=== PATIENT | female | born 1965 ===

== ENCOUNTER 2023-03-16 14:28 | Outpatient (AMB) | payer OTHER, MEDICAID, SELFPAY ==
[2023-03-16 14:50] VITALS: BMI 37.8
--- NOTE | 2023-03-16 14:50 | A.OFFVIS_ITS ---
Intake VS Expanded 03/16/23 14:50 03/26/23 21:05 Height 5 ft 4 in 5 ft 4 in Weight 220 lb 3.869 oz 220 lb BMI 37.8 37.8 Intake Visit Reasons: Obesity Allergies No Known Allergies Allergy (Unverified 02/20/20 15:50) HPI Nutrition Presentation Details Pt presents for MNT for obesity The Pt was referred by her primary care provider, Dr. Jose Manuel Smart from [facility] Pt works from 3 am to 2 :30 pm Meals consist 3 am coffee/cream/sugar 4 am yogurt with granola 8 am 100 calories crackers, or fruit 10:50 fruits 4 pm bananas/ chicken baked air fryer , water 5pm fruit/crackers juice/water physical activity: daily life act ETOH- -- smoking denies , LTB-Eomkovw-Zh.Jeor Equation Height 5 ft 4 in Weight 220 lb Resting Metabolic Rate 1571.47 Calculated Activity Level Sedentary Calories Needed to Maintain Weight 1885.76 Diagnosis Nutrition problem #1 excessive energy intake As related to (etiology) #1 lack of nutrit education and diagnosis As evidenced by (sign/symptom) #1 knowledge deficit of diet Most Recent Diabetes Results: No Data to Display [facility] Medical History (Updated 03/26/23 @ 21:14 by Calli Landa, RD, LDN) Diverticulosis Hiatal hernia Prediabetes Assessment & Plan Assessment & Plan (1) Obesity (BMI 30.0-34.9): Comment: 160 g carbs /day Code(s): E66.9 - Obesity, unspecified Plan: wt: 100 kg Est kcal needs as per MSJ: 1800 (40% carb, 30% protein/fat) Est fluid needs as per 25-30 ml/d: 8574-3501 Est prot per day as per 1 g/kg bw: 100 Recommend fiber intake : 8-10 g per day and gradually increase to 25-28 g per day for women and 35-38 g for men or as tolerated Recommend sodium intake per day : less than 2000 mg Educated patient on: ( R = reviewed V = verbalizes understanding N/R = needs review N/A = not applicable * Food sources of carbohydrate, adequate serving sizes and its role in various health conditions: R * Differences between complex carbohydrates a simple carbohydrates, role of fiber in diet: R * Differences between types of fats and role in diet (mono on saturated fat fatty acids, saturated fatty acids, trans fats): R * Food sources of sodium in salt and healthy modifications for heart health in kidney health: R * Vitamins and minerals: R * Healthy plate method concept: R * Physical activity: Benefits a precaution: R * (2) Prediabetes: Code(s): R73.03 - Prediabetes Patient Instructions: Work on reducing your total carbohydrates to less than 60 g at meal time (lunch/dinner) Have a meal replacement at breakfast see 1800 pamela mal plan Coding Level of Care Code Nutr Indiv Intake (78336) Diagnoses Obesity (BMI 30.0-34.9) E66.9 Prediabetes R73.03 Time Spent (min) 30
[2023-03-26 21:05] VITALS: BMI 37.8
== END 2023-03-16 15:22 | disposition home or self-care (01) ==
PROVIDERS: PCP Internal Medicine; Visit Provider Dietitian, Registered
DX: E66.9 Obesity, unspecified (principal); R73.03 Prediabetes

== ENCOUNTER → 2023-03-16 14:28 | Outpatient (BNVA) | payer OTHER, MEDICAID, SELFPAY | PROVIDERS: PCP Internal Medicine; Visit Provider Dietitian, Registered | DX: E66.9 Obesity, unspecified (principal); Z68.37 Body mass index [BMI] 37.0-37.9, adult; R73.03 Prediabetes; Z71.3 Dietary counseling and surveillance | CPT/HCPCS: 97802 ==

== ENCOUNTER 2023-05-10 14:34 | Outpatient (AMB) | payer OTHER, MEDICAID, SELFPAY ==
[2023-05-10 14:40] VITALS: BMI 37.0
--- NOTE | 2023-05-10 14:40 | A.OFFVIS_ITS ---
Intake VS Expanded 05/10/23 14:40 Height 5 ft 4 in Weight 215 lb 6.266 oz BMI 37.0 Intake Visit Reasons: pre DM, obesity Allergies No Known Allergies Allergy (Unverified 02/20/20 15:50) HPI Nutrition Presentation Details Pt presents for MNT follow up for obesity Pt reports working on reducing the amount of carbs, working on following diet modification Most Recent Diabetes Results: No Data to Display [facility] Medical History (Updated 05/17/23 @ 19:[address], LDN) Diverticulosis Hiatal hernia Prediabetes Assessment & Plan Assessment & Plan (1) Obesity (BMI 30.0-34.9): Comment: Code(s): E66.9 - Obesity, unspecified Plan: wt: 100 kg (98 kg on 05/2023) Est kcal needs as per MSJ: 1800 (40% carb, 30% protein/fat) Est fluid needs as per 25-30 ml/d: 0983-4076 Est prot per day as per 1 g/kg bw: 100 Recommend fiber intake : 8-10 g per day and gradually increase to 25-28 g per day for women and 35-38 g for men or as tolerated Recommend sodium intake per day : less than 2000 mg Educated patient on: ( R = reviewed V = verbalizes understanding N/R = needs review N/A = not applicable * Food sources of carbohydrate, adequate serving sizes and its role in various health conditions: R * Differences between complex carbohydrates a simple carbohydrates, role of fiber in diet: R * Differences between types of fats and role in diet (mono on saturated fat fatty acids, saturated fatty acids, trans fats): R * Food sources of sodium in salt and healthy modifications for heart health in kidney health: R, V * Vitamins and minerals: R * Healthy plate method concept: R * Physical activity: Benefits a precaution: R * (2) Prediabetes: Code(s): R73.03 - Prediabetes Plan: wt: 100 kg (98 kg on 05/2023) Est kcal needs as per MSJ: 1800 (40% carb, 30% protein/fat) Est fluid needs as per 25-30 ml/d: 4340-4310 Est prot per day as per 1 g/kg bw: 100 Recommend fiber intake : 8-10 g per day and gradually increase to 25-28 g per day for women and 35-38 g for men or as tolerated Recommend sodium intake per day : less than 2000 mg Educated patient on: ( R = reviewed V = verbalizes understanding N/R = needs review N/A = not applicable * Food sources of carbohydrate, adequate serving sizes and its role in various health conditions: R * Differences between complex carbohydrates a simple carbohydrates, role of fiber in diet: R * Differences between types of fats and role in diet (mono on saturated fat fatty acids, saturated fatty acids, trans fats): R * Food sources of sodium in salt and healthy modifications for heart health in kidney health: R, V * Vitamins and minerals: R * Healthy plate method concept: R * Physical activity: Benefits a precaution: R Patient Instructions: Continue following meal plan , reducing carbs to 60 g at meal following healthy plate method Choose high fiber foods and keep hydrated Coding Level of Care Code Nutr Indiv Subseq (00737) Diagnoses Obesity (BMI 30.0-34.9) E66.9 Prediabetes R73.03 Time Spent (min) 20
== END 2023-05-10 15:20 | disposition home or self-care (01) ==
PROVIDERS: PCP Internal Medicine; Visit Provider Dietitian, Registered
DX: E66.9 Obesity, unspecified (principal); R73.03 Prediabetes

== ENCOUNTER → 2023-05-10 14:34 | Outpatient (BNVA) | payer OTHER, MEDICAID, SELFPAY | PROVIDERS: PCP Internal Medicine; Visit Provider Dietitian, Registered | DX: E66.9 Obesity, unspecified (principal); Z68.37 Body mass index [BMI] 37.0-37.9, adult; R73.03 Prediabetes; Z71.3 Dietary counseling and surveillance | CPT/HCPCS: 97803 ==

== ENCOUNTER 2023-06-27 14:08 | Outpatient (AMB) | payer OTHER, MEDICAID, SELFPAY ==
[2023-06-27 14:31] VITALS: BMI 36.1
--- NOTE | 2023-06-27 14:31 | A.OFFVIS_ITS ---
Intake VS Expanded 06/27/23 14:31 06/29/23 14:11 Height 5 ft 4 in 5 ft 4 in Weight 210 lb 8.663 oz 210 lb BMI 36.1 36.0 Intake Visit Reasons: obesity Allergies No Known Allergies Allergy (Unverified 02/20/20 15:50) HPI Nutrition Presentation Details Pt presents for MNT for Obesity. Pt reports doing well, working on diet modifications,r educing on sugars and portion sizes. Reports feeling comfortable. Physical activity: not yet, contemplating gym/equipment/walking at the mall Reports taking MVI Fluids: 64 + /day (water, low sugar flavored water) Fish : 1-2/wk Fruits : 2-3/d salads/ve x/wk UAF-Wdxijxm-Hw.Jeor Equation Height 5 ft 4 in Weight 210 lb Resting Metabolic Rate 1521.23 Calculated Activity Level Sedentary Calories Needed to Maintain Weight 1825.48 Most Recent Diabetes Results: No Data to Display [facility] Medical History (Updated 05/17/23 @ 19:[address], LDN) Diverticulosis Hiatal hernia Prediabetes Assessment & Plan Assessment & Plan (1) Obesity (BMI 30.0-34.9): Comment: Code(s): E66.9 - Obesity, unspecified Plan: wt: 100 kg (98 kg on 05/2023) , 95 kg (06/2023) Est kcal needs as per MSJ: 1800 (40% carb, 30% protein/fat) Est fluid needs as per 25-30 ml/d: 1966-9853 Est prot per day as per 1 g/kg bw: 95 Recommend fiber intake : 8-10 g per day and gradually increase to 25-28 g per day for women and 35-38 g for men or as tolerated Recommend sodium intake per day : less than 2000 mg Educated patient on: ( R = reviewed V = verbalizes understanding N/R = needs review N/A = not applicable * Food sources of carbohydrate, adequate serving sizes and its role in various health conditions: R, V * Differences between complex carbohydrates a simple carbohydrates, role of fiber in diet: R, V * Differences between types of fats and role in diet (mono on saturated fat fatty acids, saturated fatty acids, trans fats): R * Food sources of sodium in salt and healthy modifications for heart health in kidney health: R, V * Vitamins and minerals: R,V * Healthy plate method concept: R , V * Physical activity: Benefits a precaution: R , V * (2) Prediabetes: Code(s): R73.03 - Prediabetes Plan: wt: 100 kg (98 kg on 05/2023) , 95 kg (06/2023) Est kcal needs as per MSJ: 1800 (40% carb, 30% protein/fat) Est fluid needs as per 25-30 ml/d: 9638-7591 Est prot per day as per 1 g/kg bw: 95 Recommend fiber intake : 8-10 g per day and gradually increase to 25-28 g per day for women and 35-38 g for men or as tolerated Recommend sodium intake per day : less than 2000 mg Educated patient on: ( R = reviewed V = verbalizes understanding N/R = needs review N/A = not applicable * Food sources of carbohydrate, adequate serving sizes and its role in various health conditions: R, V * Differences between complex carbohydrates a simple carbohydrates, role of fiber in diet: R, V * Differences between types of fats and role in diet (mono on saturated fat fa tty acids, saturated fatty acids, trans fats): R * Food sources of sodium in salt and healthy modifications for heart health in kidney health: R, V * Vitamins and minerals: R,V * Healthy plate method concept: R , V * Physical activity: Benefits a precaution: R , V * Patient Instructions: Continue working on following healthy plate Engage in physical activity , start with 10 minute walk daily and gradually in crease by 10 minutes until able to reach at least 30 minutes daily or as tolerated Coding Level of Care Code Nutr Indiv Subseq (88607) Diagnoses Obesity (BMI 30.0-34.9) E66.9 Prediabetes R73.03 Time Spent (min) 30
[2023-06-29 14:11] VITALS: BMI 36.0
== END 2023-06-27 15:13 | disposition home or self-care (01) ==
PROVIDERS: PCP Internal Medicine; Visit Provider Dietitian, Registered
DX: E66.9 Obesity, unspecified (principal); R73.03 Prediabetes

== ENCOUNTER → 2023-06-27 14:08 | Outpatient (BNVA) | payer OTHER, MEDICAID, SELFPAY | PROVIDERS: PCP Internal Medicine; Visit Provider Dietitian, Registered | DX: E66.9 Obesity, unspecified (principal); Z68.36 Body mass index [BMI] 36.0-36.9, adult; R73.03 Prediabetes; Z71.3 Dietary counseling and surveillance | CPT/HCPCS: 97803 ==

== ENCOUNTER 2023-08-16 10:07 | Outpatient (AMB) | payer OTHER, MEDICAID, SELFPAY ==
[2023-08-16 10:17] VITALS: BMI 35.0
--- NOTE | 2023-08-16 10:17 | A.OFFVIS_ITS ---
Intake VS Expanded 08/16/23 10:17 Height 5 ft 4 in Weight 203 lb 11.314 oz BMI 35.0 Intake Visit Reasons: obesity/LVM Allergies No Known Allergies Allergy (Unverified 02/20/20 15:50) HPI Nutrition Presentation Details Pt presents for MNT for obesity, pre dm Pt reports keeping motivated, her son is very supportive in diet modifications and exercise routine working on including new vegetables and trying new foods /food mixtures food frequency fruits per day : 0-3 /wk vegetables : including 2-3 serving 4 x/wk starches: choosing root veg as main starches 10-11 serving/d dairy 2-3 serving/d fish : 1x/wk water : 64 oz /day, sometimes more physical activity: 3 x/wk, 10-20 minutes take a daily mvi Most Recent Diabetes Results: No Data to Display [facility] Medical History (Updated 05/17/23 @ 19:14 by Calli Landa, RD, LDN) Diverticulosis Hiatal hernia Prediabetes Assessment & Plan Assessment & Plan (1) Obesity (BMI 30.0-34.9): Comment: Code(s): E66.9 - Obesity, unspecified Plan: wt: 100 kg (98 kg on 05/2023) , 95 kg (06/2023), 93 kg ( 08/2023) Est kcal needs as per MSJ: 1800 (40% carb, 30% protein/fat) Est fluid needs as per 25-30 ml/d: 2914-2497 Est prot per day as per 1 g/kg bw: 95 Recommend fiber intake : 8-10 g per day and gradually increase to 25-28 g per day for women and 35-38 g for men or as tolerated Recommend sodium intake per day : less than 2000 mg Educated patient on: ( R = reviewed V = verbalizes understanding N/R = needs review N/A = not applicable * Food sources of carbohydrate, adequate serving sizes and its role in various health conditions: R, V * Differences between complex carbohydrates a simple carbohydrates, role of fiber in diet: R, V * Differences between types of fats and role in diet (mono on saturated fat fatty acids, saturated fatty acids, trans fats): R ,v * Food sources of sodium in salt and healthy modifications for heart health in kidney health: R, V * Vitamins and minerals: R,V * Healthy plate method concept: R , V * Physical activity: Benefits a precaution: R , V * (2) Prediabetes: Code(s): R73.03 - Prediabetes Plan: wt: 100 kg (98 kg on 05/2023) , 95 kg (06/2023), 93 kg ( 08/2023) Est kcal needs as per MSJ: 1800 (40% carb, 30% protein/fat) Est fluid needs as per 25-30 ml/d: 4822-7835 Est prot per day as per 1 g/kg bw: 95 Recommend fiber intake : 8-10 g per day and gradually increase to 25-28 g per day for women and 35-38 g for men or as tolerated Recommend sodium intake per day : less than 2000 mg Educated patient on: ( R = reviewed V = verbalizes understanding N/R = needs review N/A = not applicable * Food sources of carbohydrate, adequate serving sizes and its role in various health conditions: R, V * Differences between complex carbohydrates a simple carbohydrates, role of fiber in diet: R, V * Differences between types of fats and role in diet (mono on saturated fat fatty acids, saturated fatty acids, trans fats): R ,v * Food sources of sodium in salt and healthy modifications for heart health in kidney health: R, V * Vitamins and minerals: R,V * Healthy plate method concept: R , V * Physical activity: Benefits a precaution: R , V * Patient Instructions: Continue following healthy plate method Aim at 70-90 g of protein per day engage in physical activity 30 min at least 3 times a week and gradually increase to daily as tolerated monitor weight, goal 5-8 lbs less by next follow up Coding Level of Care Code Nutr Indiv Subseq (80073) Diagnoses Obesity (BMI 30.0-34.9) E66.9 Prediabetes R73.03 Time Spent (min) 30
== END 2023-08-16 10:42 | disposition home or self-care (01) ==
PROVIDERS: PCP Internal Medicine; Visit Provider Dietitian, Registered
DX: E66.9 Obesity, unspecified (principal); R73.03 Prediabetes

== ENCOUNTER → 2023-08-16 10:07 | Outpatient (BNVA) | payer OTHER, SELFPAY | PROVIDERS: PCP Internal Medicine; Visit Provider Dietitian, Registered | DX: E66.9 Obesity, unspecified (principal); Z68.35 Body mass index [BMI] 35.0-35.9, adult; R73.03 Prediabetes; Z71.3 Dietary counseling and surveillance | CPT/HCPCS: 97803 ==

== ENCOUNTER 2023-10-16 10:31 | Outpatient (AMB) | payer OTHER, MEDICAID, SELFPAY ==
[2023-10-16 10:35] VITALS: BMI 33.1
--- NOTE | 2023-10-16 10:35 | A.OFFVIS_ITS ---
VS Expanded 10/16/23 10:35 Height 5 ft 4 in Weight 193 lb 1.999 oz BMI 33.1 Intake Visit Reasons: pre dm, obesity Allergies No Known Allergies Allergy (Unverified 02/20/20 15:50) Nutrition Presentation Details: Pt presents for MNT f/u for pre diabetes and obesity. Pt reports continuing to work on diet modifications, no longer having soda/juice drinks and reducing food portions (fried foods/breads/starches) has coffee once a day not including milk/yogurt , may have cheese 1-2 x/d , has cream in coffee greens: 3 x/wk - reports slowly including vegetables in diet and contemplating making smoothies with fruit/veg fish: started including tilapia /salmon 1x/wk fruits: having 1-2 x/wk Physical activity: 3 times/wk 30 min, walking BS Monitoring Most Recent Diabetes Results: No Data to Display [facility] Medical History (Updated 05/17/23 @ 19:14 by Calli Landa, RD, LDN) Diverticulosis Hiatal hernia Prediabetes Assessment & Plan Assessment & Plan (1) Obesity (BMI 30.0-34.9): Comment: Code(s): E66.9 - Obesity, unspecified Category: Medical Plan: wt: 100 kg (98 kg on 05/2023) , 95 kg (06/2023), 93 kg ( 08/2023), 88kg (10/2023) Est kcal needs as per MSJ: 1800 (40% carb, 30% protein/fat) Est fluid needs as per 25-30 ml/d: 0148-1043 Est prot per day as per 1 g/kg bw: 88 Recommend fiber intake : 8-10 g per day and gradually increase to 25-28 g per day for women and 35-38 g for men or as tolerated Recommend sodium intake per day : less than 2000 mg Educated patient on: ( R = reviewed V = verbalizes understanding N/R = needs review N/A = not applicable * Food sources of carbohydrate, adequate serving sizes and its role in various health conditions: R, V * Differences between complex carbohydrates a simple carbohydrates, role of fiber in diet: R, V * Differences between types of fats and role in diet (mono on saturated fat fatty acids, saturated fatty acids, trans fats): R ,v * Food sources of sodium in salt and healthy modifications for heart health in kidney health: R, V * Vitamins and minerals: R,V * Healthy plate method concept: R , V * Physical activity: Benefits a precaution: R , V * calcium sources of foods, goal 1200 mg/day * (2) Prediabetes: Code(s): R73.03 - Prediabetes Category: Medical Plan: wt: 100 kg (98 kg on 05/2023) , 95 kg (06/2023), 93 kg ( 08/2023), 88 kg (10/2023) Est kcal needs as per MSJ: 1800 (40% carb, 30% protein/fat) Est fluid needs as per 30 ml/d: 2600 Est prot per day as per 1 g/kg bw: 88 Recommend fiber intake : 8-10 g per day and gradually increase to 25-28 g per day for women and 35-38 g for men or as tolerated Recommend sodium intake per day : less than 2000 mg Educated patient on: ( R = reviewed V = verbalizes understanding N/R = needs review N/A = not applicable * Food sources of carbohydrate, adequate serving sizes and its role in various health conditions: R, V * Differences between complex carbohydrates a simple carbohydrates, role of fiber in diet: R, V * Differences between types of fats and role in diet (mono on saturated fat fatty acids, saturated fatty acids, trans fats): R ,v * Food sources of sodium in salt and healthy modifications for heart health in kidney health: R, V * Vitamins and minerals: R,V * Healthy plate method concept: R , V * Physical activity: Benefits a precaution: R , V * calcium sources of foods * Patient Instructions: * Include calcium in your diet goal : 1200 mg/d (include leafy green, seeds, salmon, tofu) * continue working on following healthy plate method, try one new vegetables per week * include at least 2 fruits a day Coding Level of Care Code Nutr Indiv Subseq (18358) Diagnoses Obesity (BMI 30.0-34.9) E66.9 Prediabetes R73.03 Time Spent (min) 30
== END 2023-10-16 11:28 | disposition home or self-care (01) ==
PROVIDERS: PCP Internal Medicine; Visit Provider Dietitian, Registered
DX: E66.9 Obesity, unspecified (principal); R73.03 Prediabetes

== ENCOUNTER → 2023-10-16 10:31 | Outpatient (BNVA) | payer OTHER, SELFPAY | PROVIDERS: PCP Internal Medicine; Visit Provider Dietitian, Registered | DX: R73.03 Prediabetes (principal); E66.9 Obesity, unspecified; Z68.33 Body mass index [BMI] 33.0-33.9, adult; Z71.3 Dietary counseling and surveillance | CPT/HCPCS: 97803 ==

== ENCOUNTER 2024-01-22 10:34 | Outpatient (AMB) | payer OTHER, MEDICAID, SELFPAY ==
[2024-01-22 10:37] VITALS: BMI 35.6
--- NOTE | 2024-01-22 10:37 | A.OFFVIS_ITS ---
VS Expanded 01/22/24 10:37 Height 5 ft 4 in Weight 207 lb 3.752 oz BMI 35.6 Intake Visit Reasons: Pre DM/LVM Allergies No Known Allergies Allergy (Unverified 02/20/20 15:50) Nutrition Presentation Details: Pt presents for MNT f/u for obesity Pt reports having stopped meal planning this past month due to visiting fam members. BS Monitoring Most Recent Diabetes Results: No Data to Display [facility] Medical History (Updated 05/17/23 @ 19:[address], LDN) Diverticulosis Hiatal hernia Prediabetes Assessment & Plan Assessment & Plan (1) Obesity (BMI 30.0-34.9): Comment: Code(s): E66.9 - Obesity, unspecified Category: Medical Plan: wt: 100 kg (98 kg on 05/2023) , 95 kg (06/2023), 93 kg ( 08/2023), 88kg (10/2023), 94 kg (01/26) Est kcal needs as per MSJ: 1800 (40% carb, 30% protein/fat) Est fluid needs as per 25-30 ml/d: 7294-0116 Est prot per day as per 1 g/kg bw: 88 Recommend fiber intake : 8-10 g per day and gradually increase to 25-28 g per day for women and 35-38 g for men or as tolerated Recommend sodium intake per day : less than 2000 mg Educated patient on: ( R = reviewed V = verbalizes understanding N/R = needs review N/A = not applicable * Food sources of carbohydrate, adequate serving sizes and its role in various health conditions: R, V * Differences between complex carbohydrates a simple carbohydrates, role of fiber in diet: R, V * Differences between types of fats and role in diet (mono on saturated fat fatty acids, saturated fatty acids, trans fats): R ,v * Food sources of sodium in salt and healthy modifications for heart health in kidney health: R, V * Vitamins and minerals: R,V * Healthy plate method concept: R , V * Physical activity: Benefits a precaution: R , V * calcium sources of foods, goal 1200 mg/day * (2) Prediabetes: Code(s): R73.03 - Prediabetes Category: Medical Plan: wt: 100 kg (98 kg on 05/2023) , 95 kg (06/2023), 93 kg ( 08/2023), 88 kg (10/2023), 94 kg (01/2024) Est kcal needs as per MSJ: 1800 (40% carb, 30% protein/fat) Est fluid needs as per 30 ml/d: 2600 Est prot per day as per 1 g/kg bw: 88 Recommend fiber intake : 8-10 g per day and gradually increase to 25-28 g per day for women and 35-38 g for men or as tolerated Recommend sodium intake per day : less than 2000 mg Educated patient on: ( R = reviewed V = verbalizes understanding N/R = needs review N/A = not applicable * Food sources of carbohydrate, adequate serving sizes and its role in various health conditions: R, V * Differences between complex carbohydrates a simple carbohydrates, role of fiber in diet: R, V * Differences between types of fats and role in diet (mono on saturated fat fatty acids, saturated fatty acids, trans fats): R ,v * Food sources of sodium in salt and healthy modifications for heart health in kidney health: R, V * Vitamins and minerals: R,V * Healthy plate method concept: R , V * Physical activity: Benefits a precaution: R , V * calcium sources of foods * Patient Instructions: Resume working on having 3 meals/day following healthy plate method REstar physical activity, start with 10 minutes and gradually increase as tolerated Coding Level of Care Code Nutr Indiv Subseq (75071) Diagnoses Obesity (BMI 30.0-34.9) E66.9 Prediabetes R73.03 Time Spent (min) 20
== END 2024-01-22 11:05 | disposition home or self-care (01) ==
PROVIDERS: PCP Internal Medicine; Visit Provider Dietitian, Registered
DX: E66.9 Obesity, unspecified (principal); R73.03 Prediabetes

== ENCOUNTER → 2024-01-22 10:34 | Outpatient (BNVA) | payer OTHER, MEDICAID, SELFPAY | PROVIDERS: PCP Internal Medicine; Visit Provider Dietitian, Registered | DX: E66.9 Obesity, unspecified (principal); Z68.35 Body mass index [BMI] 35.0-35.9, adult; R73.03 Prediabetes; Z71.3 Dietary counseling and surveillance | CPT/HCPCS: 97803 ==

== ENCOUNTER 2025-02-25 18:26 | Emergency (ER) | payer OTHER, SELFPAY ==
--- OUTSIDE RECORDS SUMMARY | 2025-02-20 12:00 | XMS_ITS | Encounter Summary ---
Author Organization [facility] Address [address] [place] [address] Care Team Providers Care Rheologist Name Role Phone Kristy Schaffer MD Primary Care Provider [phone] Reason for Visit * Consultation (Routine) - Authorized Specialty Diagnoses / Procedures Referred By Annabella dudley Referred To Contact Physical Therapy Diagnoses Primary osteoarthritis of both knees Jeb Ang PA [address] [place] [phone] Phone: tel: fax: Referral ID Status Reason Start Date Expiration Date Visits Requested Visits Authorized [id number] Authorized Consult and Treat 12/19/2024 12/19/2025 21 21 Encounter Details Date Type Department Care Team (Latest Contact Info) Description 02/20/2025 12:00 PM EDT Treatment [address] [phone] Jamal Mendez, PT Primary osteoarthritis of both knees (Primary Dx); Difficulty in walking Social History Tobacco Use Types Packs/Day Years Used Date Smoking Tobacco: Never Smokeless Tobacco: Never Alcohol Use Standard Drinks/Week Comments No 0 (1 standard drink = 0.6 oz pur e alcohol) Interpersonal Safety Answer Date Record ed Physical Abuse 08/28/2024 Verbal Abuse 08/28/2024 Comments No Sex and Gender Information Value Date Recorded Sex Assigned at Female 08/28/2024 10:08 AM EDT Legal Sex Female 1:00 AM EST Gender Identity Female 08/28/2024 10:08 AM EDT Sexual Orientation Straight 08/28/2024 10 :08 AM EDT documented as of this encounter Progress Notes * Jamal Mendez, PT - 02/20/2025 12:00 PM EDT [facility] - Outpatient PHYSICAL THERAPY DAILY TREATMENT NOTE - OP Date: 02/20/2025 Visit Number: 3 Patient Name: Iker Sheppard : 1965 Age: 59 y.o. Gender: female Diagnosis: ICD-10-CM ICD-9-CM 1. Primary osteoarthritis of both knees M17.0 715.16 2. Difficulty in walking R26.2 719.7 Date of Onset/Surgery: 02/12/2025 Referring Provider: Jeb Ang PA Insurance: Payor: [employer] / Plan: [employer]ICA[employer] / Product Type: *No Product type* / Patient Identified by: Jamal Mendez PT Language: Speaks and understands Kazakh as preferred language with no attending urologist required Medications: Current Outpatient Medications on File Prior to Visit Medication Sig Dispense Refill eletriptan (RELPAX) 20 mg tablet Take 1 tablet (20 mg total) by mouth 1 (one) time if needed for migraine. May repeat once after 2 hours. 18 tablet 3 hydrOXYzine HCL (ATARAX) 25 mg tablet Take 1 tablet (25 mg total) by mouth every 8 (eight) hours ifneeded for anxiety. 90 each 0 levothyroxine (SYNTHROID, LEVOTHROID) 100 mcg tablet Take 1 tablet (100 mcg total) by mouth 1 (one)time each day. 90 tablet 1 losartan (Cozaar) 25 mg tablet Take 1 tablet (25 mg total) by mouth 1 (one) time each day. 90 each 0 meloxicam (MOBIC) 7.5 mg tablet Take 1 tablet (7.5 mg total) by mouth 1 (one) time each day. 30 tablet 2 metoprolol succinate (Toprol XL) 25 mg 24 hr tablet Take 1 tablet (25 mg total) by mouth 1 (one) time each day. Do not crush or chew. 90 each 0 naproxen (NAPROSYN) 500 mg tablet Take 1 tablet (500 mg total) by mouth 2 (two) times a day if needed for mild pain, moderate pain or headaches. 60 tablet 2 omeprazole (PriLOSEC) [address] capsule Take 1 capsule (40 mg total) by mouth 1 (one) time each day.90 each 0 ramelteon (Rozerem) 8 mg tablet Take 1 tablet (8 mg total) by mouth at bedtime as needed for sleep.90 each 0 UNABLE TO FIND Med Name: CPAP machine No current facility-administered medications on file prior to visit. Allergies: has No Known Allergies. Precautions: None Fall risk: No SUBJECTIVE: Subjective Report: A little bit better after last visit. Chart Reviewed: Yes Pain: A little B knees 4/10 OBJECTIVE: Vitals: There were no vitals filed for this visit.; TREATMENT INTERVENTION: Manual Tech: STM B knees Pat mobilizations B knee Therex: Heel slides 2 x 10 SLR 2 x 10 Hip abd in H/L blue tband 2 x 10 Shuttle 4 cords presses 2 x 10 HS curls in standing 2 x 10 Nu step x 5 min L5 True stretch hip flexor/knee flexion stretch x 10 each. ASSESSMENT/Response to Treatment Good. Pt did have some fatigue and pain with increased exercises today. L pat mobility and swellingat pop space much worse that R. Patient Education: Education provided: Exs Education Provided To: Patient utilizing Explanation and Demonstration mode(s) of education Response to Education: Applied Knowledge, Verbal Understanding, and Demonstrated Skills PLAN POC Development/Review: No Change in the Plan of Care; Participants: Patient Interventions Time Entry: Modalities: Therapeutic procedures: Manual Therapy Time Entry: 9 Therapeutic Exercise Time Entry: 21 Total Treatment Time: 30 Documentation completed by Jamal Mendez PT documented in this encounter Plan of Treatment Upcoming Encounters Date Type Department Care Team (Late st Contact Info) Description 02/26/2025 9:10 AM EDT Office Visit [facility] [address] [place] [address] Hayde Andrew NP [address] [place] [address] [address] [place] [phone] 02/27/2025 11:00 AM EDT Treatment [facility] - [address] [place] [address] Jamal Mendez, PT 03/03/2025 10:00 AM EDT Treatment [address] [phone] Kareem Mendoza, CNA GNA 03/05/2025 10:00 AM EDT Treatment [address] [phone] Kareem Mendoza, CNA GNA 03/10/2025 11:00 AM EDT Treatment [address] [phone] Jamal Mendez, PT 03/12/2025 10:00 AM EDT Treatment [address] [phone] Jamal Mendez, PT 03/13/2025 10:00 AM EDT Office Visit Pulmonology [address] [phone] Samantha Bailey MD [address] [address] 03/20/2025 10:45 AM EDT Office Visit Orthopedics [address] [phone] Jeb Ang PA [address] [place] [phone] 03/25/2025 3:30 PM EDT Office Visit [facility] - [address] [phone] Kristy Schaffer MD [address] [place] [phone] 05/13/2025 10:00 AM EST Consult Vascular Surgery - [place] 300 [facility] [address] [place] [phone] Adelia Cochran PA [address] [place] [address] 06/06/2025 1:30 PM EST Office Visit Gastroenterology - [place] [address] [facility] [address] [place] [phone] Hailey Davis MD 175 [facility] 200 [place] [address] documented as of this encounter Visit Diagnoses Diagnosis Primary osteoarthritis of both knees- Primary Difficulty in walking documented in this encounter Care Teams Rheologist Relationship Specialty Start Date End Date Kristy Schaffer MD [address] [place] [address] PCP - General 08/04/22 documented as of this encounter
--- OUTSIDE RECORDS SUMMARY | 2025-02-24 11:00 | XMS_ITS | Encounter Summary ---
Author Organization [facility] Address [address] [place] [address] Care Team Providers Care Brass Plater Name Role Phone Kristy Schaffer MD Primary Care Provider [phone] Reason for Visit * Consultation (Routine) - Authorized Specialty Diagnoses / Procedures Referred By Annabella dudley Referred To Contact Physical Therapy Diagnoses Primary osteoarthritis of both knees Jeb Ang PA [address] [place] [phone] Phone: tel: fax: Referral ID Status Reason Start Date Expiration Date Visits Requested Visits Authorized [id number] Authorized Consult and Treat 12/19/2024 12/19/2025 21 21 Encounter Details Date Type Department Care Team (Latest Contact Info) Description 02/24/2025 11:00 AM EDT Treatment [address] [phone] Jamal Mendez, PT Primary osteoarthritis of both [...] Progress Notes * Jamal Mendez, PT - 02/24/2025 11:00 AM EDT [facility] - Outpatient PHYSICAL THERAPY DAILY TREATMENT NOTE - OP Date: 02/24/2025 Visit Number: 4 Patient Name: Iker Sheppard : 1965 Age: 59 y.o. Gender: female Diagnosis: ICD-10-CM ICD-9-CM 1. Primary osteoarthritis of both knees M17.0 715.16 2. Difficulty in walking R26.2 719.7 Date of Onset/Surgery: 02/12/2025 Referring Provider: Jeb Ang PA Insurance: Payor: [employer] / Plan: [employer] MEDICAID / Product Type: *No Product type* / Patient Identified by: Jamal Mendez PT Language: Speaks and understands Hungarian as preferred language with no superintendent colliery required Medications: Current Outpatient Medications on File [...] B knees Pat mobilizations B knee Therex: Nu step x 5 min L5 Heel slides 2 x 10 SLR 2 x 10 Prone quad stretch 3 x 10 sec L and R Hip abd in H/L blue tband 2 x 10 Shuttle 4 cords presses 3 x 10 HS curls in standing 2 x 10 Squish the bug on bosu fwd lunge x 10 each with 3 sec holdds ASSESSMENT/Response to Treatment Good. Progressing well at this time. Improved patellar mobility and was able to tolerate quad stretch without knee pain. Patient Education: Education provided: Progression of therex Education Provided To: Patient utilizing Explanation and Demonstration mode(s) of education Response to Education: Applied Knowledge, Verbal Understanding, and Demonstrated Skills PLAN POC Development/Review: No Change in the Plan of Care; Participants: Patient Interventions Time Entry: Modalities: Therapeutic procedures: Manual Therapy Time Entry: 10 Therapeutic Exercise Time Entry: 20 Total Treatment Time: 30 Documentation completed by Jamal Mendez PT documented in this encounter Plan of Treatment Upcoming Encounters Date Type Department Care Team (Late st Contact Info) Description 02/26/2025 9:10 AM EDT Office Visit [facility] [address] [place] [address] Hayde Andrew NP [address] [place] [address] [address] [place] [phone] 02/27/2025 11:00 AM EDT [facility] [address] [address] Jamal Mendez, PT 03/03/2025 10:00 AM EDT Treatment [address] [phone] Kareem Mendoza, BIAS MACHINE OPERATOR 03/05/2025 10:00 AM EDT Treatment [address] [phone] Kareem Mendoza, BIAS MACHINE OPERATOR 03/10/2025 11:00 AM EDT Treatment [address] [phone] Jamal Mendez, PT 03/12/2025 10:00 AM EDT Treatment [address] [phone] Jamal Mendez, PT 03/13/2025 10:00 AM EDT Office Visit Pulmonology [address] [phone] Samantha Baliey MD [address] [address] 03/20/2025 10:45 AM EDT Office Visit Orthopedics [address] [phone] Jeb Ang PA [address] [place] [phone] 03/25/2025 3:30 PM EDT Office Visit [facility] - [address] [phone] Kristy Schaffer MD [address] [place] [phone] 05/13/2025 10:00 AM EST Consult Vascular Surgery - [place] 300 [facility] 210 [place] [address] Adelia Cochran PA 300 [facility] 210 [place] [address] 06/06/2025 1:30 PM EST Office Visit Gastroenterology - [place] 175 [facility] 175 [facility] 200 [place] [phone] Hailey Davis MD 175 [facility] 200 [place] [address] documented as of this encounter Visit Diagnoses Diagnosis Primary osteoarthritis of both knees- Primary Difficulty in walking documented in this encounter Care Teams Brass Plater Relationship Specialty Start Date End Date Kristy Schaffer MD [address] [place] [address] PCP - General 08/04/22 documented as of this encounter
--- NOTE | ~2025-02-25 | CT_ITS ---
CLINICAL HISTORY: RUQ and Epigastric Abd Tenderness; N V CT abdomen and pelvis with contrast Comparison: None provided Findings: CT abdomen: Mild areas of hazy density within the dependent portion of the lungs bilaterally. No dense area of consolidation. No pleural effusion or pneumothorax. Hemangioma replaces the majority of the L2 vertebral body. No acute fractures identified. Mild elevation of the right hemidiaphragm. No focal hepatic lesions. Main portal vein is patent. Spleen, pancreas, gallbladder, and adrenal glands are unremarkable. Symmetric enhancement of the kidneys without mass, hydronephrosis, or nephrolithiasis. Small to moderate-sized hiatal hernia. Small bowel loops are of normal caliber. No free fluid or free air. CT pelvis: Appendix is normal. Scattered diverticuli within the colon, primarily the sigmoid colon. No findings of diverticulitis. Urinary bladder is moderately distended. No bladder calculi or bladder wall thickening. Likely uterine fibroids measuring up to 2 cm in size off the uterine fundus. No free fluid or free air. IMPRESSION: No acute imaging explanation for the patient's symptoms. This document has been electronically signed by: Ernie Luna MD on 02/26/2025 02:41:32
[2025-02-25 18:46] VITALS: BP 206/105; PULSE 98; RESP 15; TEMP 37.1; O2SAT 99; BMI 42.9
--- NOTE | 2025-02-25 18:46 | ED_ITS ---
HPI - General Adult General Chief complaint: Abdominal Pain Stated complaint: abd pain, SOB, vomiting; fatigue, headache Time Seen by Provider: 02/25/25 22:39 Source: patient Mode of arrival: ambulatory Limitations: no limitations History of Present Illness ED Provider: Marquis DAVIS HPI narrative: The patient is a 59-year-old female presenting to the ED reporting for the past month she has been experiencing waxing and waning epigastric abdominal pain which is worse in the evenings and with lying down. The patient reports associated vague symptoms of weakness, and headaches. The patient reports yesterday symptoms of epigastric pain and right upper quadrant pain increased and today she experienced 1 episode of bilious, nonbloody vomiting. The patient denies associated fever/chills, chest pain, shortness of breath, back pain, dysuria, hematuria, hematochezia, melena, recent sick contacts, or recent trauma. The patient denies surgical abdominal history. The patient reports she suffers from chronic gastritis, has been taking omeprazole for many months but these symptoms develop despite omeprazole therapy. Patient reports she also attempted calcium based antacids without any relief from symptoms. Patient contacted her PCP this afternoon after vomiting episode, and was directed to the ED for evaluation. Related Data Previous Rx's ?Medication ?Instructions ?Recorded famotidine 20 mg tablet (Pepcid) 20 mg PO BID #28 tabs 02/26/25 Allergies Allergy/AdvReac Type Severity Reaction Status Date / Time No Known Allergies Allergy Verified 02/25/25 18:47 Review of Systems 2 Review of Systems: Yes all other systems are reviewed and are negative FOR[facility]LY [facility] Past Medical History Medical History (Updated 02/26/25 @ 05:01 by Marquis Huang PA-C) Diverticulosis Hiatal hernia Prediabetes Social History Social History Smoked in Last 30 Days: No Use of substances other than those prescribed or required for medical reasons: No Advance Directives: No Advance Directives Information Provided: Yes Do you have a plan to hurt others: No Plan Physical Exam ED Vital Signs: Vital Signs - 24 hr 02/25/25 18:46 02/25/25 21:51 02/26/25 01:06 Temperature 98.8 F 98.3 F 98.6 F Pulse Rate 98 84 70 Respiratory Rate 15 18 20 Blood Pressure 206/105 H 167/82 H 148/84 H Pulse Oximetry 99 97 99 Oxygen Delivery Method Room Air Room Air Room Air 02/26/25 03:46 Temperature 98.0 F Pulse Rate 65 Respiratory Rate 16 Blood Pressure 172/80 H Pulse Oximetry 98 Oxygen Delivery Method Room Air BMI result Body Mass Index 42.9 CONSTITUTIONAL: The patient appears uncomfortable but otherwise non-toxic, well nourished and in no acute distress. Vital signs as documented. HEAD: Atraumatic, normocephalic. EYES: EOMs grossly intact, pupils equal, conjunctiva clear, no exudate. ENT: Nares patent, no discharge. Airway patent, no audible stridor, visible mucosa is pink and moist without noted lesions. NECK: Trachea is midline, no obvious masses or gross abnormalities. CHEST: Symmetric movement, normal appearance. LUNGS: LS present and CTAB, no w/r/r. Non-labored work of breathing. CARDIAC: Regular Rhythm, S1/S2 appreciated, no murmurs, rubs or gallops. ABDOMEN: Abdomen soft x4 quadrants, positive tenderness to palpation of the right upper quadrant epigastrium. Negative rebound, negative Perry's. no palpable masses or organomegaly. : Deferred. EXTREMITIES: Normal tone, moves all extremities spontaneously without reported pain. No obvious acute injury or deformity noted. NEURO: Alert and oriented x3, CN II-XII appear grossly intact. Cerebellar Functioning grossly intact. No obvious sensory or motor deficits. Speech clear and appropriate. PSYCH: normal affect, appropriate eye contact, fluid speech, with appropriate response to questioning. No reported suicidality or homicidality. SKIN: Warm, dry, color appropriate, normal turgor. No rashes noted. Course Course Course Narrative: This is a Rapid Medical Examination (RME) performed by Jimenez Garay PA-C in triage. Full HPI, ROS, assessment and treatment plan per primary provider in the Main ED. Hx: 59 yo F here for eval of epigastric abd pain, N/V, dizziness, weakness, headache x1 mo. no hx abd surgeries. no changes to BMs. Plan: labs, ua Medications Administered Discontinued Medications Generic Name Dose Route Start Last Admin Trade Name Freq PRN Reason Stop Dose Admin Al Hydroxide/Mg Hydroxide 30 ml 02/26/25 03:08 02/26/25 03:25 Magnesium Hydrox/Alum Hydrox 30 Ml Oral.Susp PO 02/26/25 03:09 30 ml ONCE ONE Administration Famotidine 20 mg 02/26/25 03:08 02/26/25 03:25 Famotidine 20 Mg Tablet PO 02/26/25 03:09 20 mg ONCE ONE Administration Sodium Chloride 1,000 mls @ 999 mls/hr 02/25/25 23:45 02/26/25 04:17 Ns IV 02/26/25 00:45 Infused .Q1H1M FLORA Infusion Iohexol 85 ml 02/26/25 01:46 02/26/25 01:47 Iohexol 350 Mg/Ml 100 Ml Infus..Btl IV 02/26/25 01:47 85 ml ONCE ONE Administration Lidocaine HCl 15 ml 02/26/25 03:08 02/26/25 03:25 Lidocaine Hcl Viscous 2 % 15 Ml Solution PO 02/26/25 03:09 15 ml ONCE ONE Administration Morphine Sulfate 4 mg 02/25/25 23:35 02/26/25 00:55 Morphine Sulfate 4 Mg/Ml Cartridge IVPUSH 02/25/25 23:36 4 mg ONCE ONE Administration Protocol Ondansetron HCl 4 mg 02/25/25 23:35 02/26/25 00:55 Ondansetron Hcl 4 Mg/2 Ml Vial IVPUSH 02/25/25 23:36 4 mg ONCE ONE Administration Medical Decision Making Medical Decision Making MDM Narrative: 11:36 PM 02/25/2025 (Jimenez DAVIS): The patient is a 59-year-old female presenting to the ED reporting for the past month she has been experiencing waxing and waning epigastric abdominal pain which is worse in the evenings and with lying down. The patient reports associated vague symptoms of weakness, and headaches. The patient reports yesterday symptoms of epigastric pain and right upper quadrant pain increased and today she experienced 1 episode of bilious, nonbloody vomiting. The patient denies associated fever/chills, chest pain, shortness of breath, back pain, dysuria, hematuria, hematochezia, melena, recent sick contacts, or recent trauma. The patient denies surgical abdominal history. The patient reports she suffers from chronic gastritis, has been taking omeprazole for many months but these symptoms develop despite omeprazole therapy. Patient reports she also attempted calcium based antacids without any relief from symptoms. Patient contacted her PCP this afternoon after vomiting episode, and was directed to the ED for evaluation. In the ED patient appears uncomfortable but in no acute distress, vital signs are reassuring, no tachycardia, fever, hypoxia, or hypotension. The patient's exam is positive for right upper quadrant epigastric abdominal tenderness, negative rebound, negative Perry's. Laboratory evaluation shows no leukocytosis, anemia, electrolyte abnormality, or BORIS. Patient's LFTs are all unremarkable, lipase is normal. The patient's urinalysis is negative for infection. Patient may be suffering from worsening gastritis versus cholecystic pathology, ultrasound is not currently available, we will obtain CT to rule out acute cholecystitis or other acute intra-abdominal pathology. Pending no acute pathology on CT imaging patient will likely require outpatient follow up with PCP for nonemergent outpatient ultrasound. Patient will be treated with IV fluid hydration, morphine, and Zofran. Following CT if patient has no relief of symptoms we will attempt GI cocktail. 3:00 AM 02/26/2025 (Jimenez DAVIS): Patient's CT shows no acute intra-abdominal pathology. The patient will be treated with a GI cocktail and reassessed. 4:54 AM 02/26/2025 (Jimenez DAVIS): Patient feels improved following GI cocktail, patient's symptoms likely secondary to gastritis, we will treat with Pepcid in addition to omeprazole. Admission/Observation Consideration of admission/observation: Escalation of care including admission/observation considered Lab Data MDM Lab Attestation statement: I reviewed the patient's lab results. 02/25/25 19:44 02/25/25 19:44 Labs: Lab Results 02/25/25 02/25/25 Range/Units 19:44 19:49 WBC 7.7 (4.8-10.8) X10*3/uL RBC 4.96 (4.20-5.50) X10*6/uL Hgb 14.6 (12.0-16.0) g/dl Hct 42.3 (37.0-47.0) % MCV 85.3 (80.0-98.0) fL MCH 29.4 (27.0-33.0) pg MCHC 34.5 (31.0-35.0) g/dl RDW 12.7 (11.0-16.0) % Plt Count 261 (160-400) X10*3/uL MPV 9.2 L (9.4-12.3) fL Immature Gran % (Auto) 0.1 (0.0-0.4) % Neut % (Auto) 62.7 (45-73) % Lymph % (Auto) 26.9 (20-40) % [place] % (Auto) 8.6 (2-11) % Eos % (Auto) 1.2 (0-4) % Baso % (Auto) 0.5 (0-2) % Lymph # (Auto) 2.1 (1.2-4.9) X10*3/uL [place] # (Auto) 0.7 (0.1-1.2) X10*3/uL Eos # (Auto) 0.1 (0.0-0.4) X10*3/uL Baso # (Auto) 0.0 (0.0-0.2) X10*3/uL Abs Immat Gran (auto) 0.01 (0.00-0.03) X10*3/uL Absolute Neuts (auto) 4.8 (2.0-8.3) x10*3/uL Absolute Nucleated RBC 0.000 (0.0-0.012) X10*3/uL Nucleated RBC % (auto) 0.0 (0.0-0.2) /100WBC Sodium 144 (135-145) mmol/L Potassium 3.9 (3.3-5.1) mmol/L Chloride 107 (96-108) mmol/L Carbon Dioxide 27 (22-29) mmol/L Anion Gap 14 (12-20) BUN 9 (9-16) mg/dL Creatinine 0.67 (0.5-1.4) mg/dL Estim Creat Clear Calc 111.5 Estimated GFR > 60 Random Glucose 100 (60-115) mg/dL Calcium 9.6 (8.4-10.2) mg/dL Magnesium 2.1 (1.6-2.6) mg/dL Total Bilirubin 0.3 (0.0-1.0) mg/dL AST 18 (5-31) U/L ALT 17 (0-31) U/L Alkaline Phosphatase 91 (39-117) U/L Total Protein 7.6 (6.5-8.0) g/dL Albumin 4.5 (3.5-5.0) g/dL Lipase 15 (8-78) U/L Urine Color Yellow Urine Appearance Clear Urine pH 7.0 (5.0-9.0) Ur Specific [place] <= 1.005 (1.005-1.025) Urine Protein Negative (Neg-Trace) mg/dL Urine Glucose (UA) Negative (Negative) mg/dL Urine Ketones Negative (Negative) mg/dL Urine Blood Negative (Negative) Urine Nitrite Negative (Negative) Ur Leukocyte Esterase Trace H (Negative) Urine RBC 0-2 (0-2) /HPF Urine WBC 0-5 (0-5) /HPF Ur Squamous Epith Cells 0-2 (0-2) /HPF Urine Bacteria None Seen (None Seen) Hyaline Casts 0-2 (0-2) /LPF Radiology Impression Discussion of test interpretation with radiology: I have reviewed the radiologist's reading. Radiologist Impression: CLINICAL HISTORY: RUQ and Epigastric Abd Tenderness; N V CT abdomen and pelvis with contrast Comparison: None provided Findings: CT abdomen: Mild areas of hazy density within the dependent portion of the lungs bilaterally. No dense area of consolidation. No pleural effusion or pneumothorax. Hemangioma replaces the majority of the L2 vertebral body. No acute fractures identified. Mild elevation of the right hemidiaphragm. No focal hepatic lesions. Main portal vein is patent. Spleen, pancreas, gallbladder, and adrenal glands are unremarkable. Symmetric enhancement of the kidneys without mass, hydronephrosis, or nephrolithiasis. Small to moderate-sized hiatal hernia. Small bowel loops are of normal caliber. No free fluid or free air. CT pelvis: Appendix is normal. Scattered diverticuli within the colon, primarily the sigmoid colon. No findings of diverticulitis. Urinary bladder is moderately distended. No bladder calculi or bladder wall thickening. Likely uterine fibroids measuring up to 2 cm in size off the uterine fundus. No free fluid or free air. IMPRESSION: No acute imaging explanation for the patient's symptoms. This document has been electronically signed by: Ernie Luna MD on 02/26/2025 02:41:32 External Record Review External record reviewed: Outpatient record Discharge Plan Discharge Clinical Impression: Gastritis and duodenitis Patient Disposition: Home, Self-Care Instructions: Gastritis (ED), Duodenitis (ED) Additional Instructions: Tabitha por elegir el [facility] para vilchis atenci?n m?dica hoy. Afortunadamente, xiang an?lisis de laboratorio, ecograf?a, tomograf?a computarizada, an?lisis de orina y examen de hoy son tranquilizadores. No se observaron c?lculos biliares, infecci?n de ves?cula, obstrucci?n intestinal ni ninguna otra patolog?a de emergencia que causara xiang s?ntomas. En neetu momento, no hay indicaci?n de ingreso hospitalario ni de observaci?n continua en urgencias, y es seguro darle de michelle. Le tratamos con un c?ctel gastrointestinal, que se usa ?nicamente para tratar la inflamaci?n del est?svetlana. Dado que xiang s?ntomas mejoraron despu?s de esta intervenci?n, es probable que vilchis dolor y sensibilidad se debieran a марина inflamaci?n del est?svetlana y la primera porci?n del intestino liu, марина afecci?n conocida tammie gastritis y duodenitis. [place] Pepcid adem?s de vilchis omeprazol recetado regularmente. [place] Pepcid dos veces al d?a brianne las pr?ximas 2 semanas. Consulte con un gastroenter?logo para марина evaluaci?n adicional y el manejo de xiang s?ntomas. Por favor, consulte tambi?n con vilchis m?dico de cabecera para марина reevaluaci?n, un tratamiento adicional de xiang s?ntomas y atenci?n preventiva continua. Si no tiene un m?dico de cabecera, llame a [facility] al [phone] para asignarle juan nuevo. Mientras espera la asignaci?n de vilchis nuevo m?dico de cabecera, puede llamar a nuestra [facility]enn[facility] al [phone] para necesidades que no jessica de emergencia. Por favor, regrese al servicio de urgencias si presenta un cambio grave o repentino en xiang s?ntomas, fiebre superior a 38 ?C que no mejora con Tylenol o ibuprofeno, v?mitos recurrentes o cualquier otro s?ntoma o inquietud nuevo o que empeore. Thank you for choosing [facility]'s Emergency Department for your care today. Thankfully your laboratory evaluation, ultrasound, CT scan, urinalysis, and exam today are all reassuring. There was no evidence of any gallstones, gallbladder infection, bowel obstruction, or other emergent pathology causing your symptoms. At this time there is no indication for admission to the hospital or continued ED observation, and it is safe to discharge you home. We treated you with a GI cocktail, which is used to treat only inflammation of the stomach. Seeing as your symptoms improved following this intervention, your pain and tenderness was likely caused by inflammation of your stomach and the 1st portion of your small intestine, a condition known as gastritis and duodenitis. Please take Pepcid in addition to your regularly prescribed omeprazole. Please take Pepcid twice a day for the next 2 weeks. Please follow up with a GI physician for additional evaluation and management of your symptoms. Please also follow up with your primary care physician for re-evaluation, additional management of your symptoms, and continued preventative care. If you do not have a primary care physician, please call the [facility] at [phone] to establish a new primary care physician. While waiting to establish your new primary care physician, you can call our [facility] at [phone] for non-emergency needs. Please return to the emergency department if you develop a severe or sudden change in your symptoms, a fever over 100.4 that does not improve with Tylenol or Ibuprofen, recurrent vomiting, or any other new or worsening symptoms or concerns. Prescriptions: New famotidine [Pepcid] 20 mg tablet 20 mg PO BID Qty: 28 0RF Print Language: Amharic
[2025-02-25 19:49] LABS: MANUAL DIFF FLAG NO
[2025-02-25 19:50] LABS: Hematocrit 42.3 % (37.0-47.0); Hemoglobin 14.6 g/dl (12.0-16.0); Imm Gran Abs Auto 0.01 X10*3/uL (0.00-0.03); Imm Gran Pct Auto 0.1 % (0.0-0.4); Lymphocytes Absolute Auto 2.1 X10*3/uL (1.2-4.9); Mean Corpuscular HGB Conc 34.5 g/dl (31.0-35.0); Mean Corpuscular Hemoglobin 29.4 pg (27.0-33.0); Mean Corpuscular Volume 85.3 fL (80.0-98.0); NRBC Abs Auto 0.000 X10*3/uL (0.0-0.012); NRBC Pct Auto 0.0 /100WBC (0.0-0.2); Platelet Count 261 X10*3/uL (160-400); Red Blood Count 4.96 X10*6/uL (4.20-5.50); White Blood Count 7.7 X10*3/uL (4.8-10.8)
[2025-02-25 20:12] LABS: Appearance Urine Clear; Glucose Urine UA Negative (Negative); PH 7.0 (5.0-9.0); Specific Gravity - Urine <= 1.005 (1.005-1.025); UMIC TRIGGER UACC YES
[2025-02-25 20:38] LABS: Alanine Aminotransferase 17 U/L (0-31); Albumin Level 4.5 g/dL (3.5-5.0); Alkaline Phosphatase 91 U/L (39-117); Anion Gap 14 (12-20); Aspartate Amino Transferase 18 U/L (5-31); Blood Urea Nitrogen 9 mg/dL (9-16); Calcium 9.6 mg/dL (8.4-10.2); Carbon Dioxide 27 mmol/L (22-29); Chloride 107 mmol/L (96-108); Creatinine Clr Calc Pharmacy 111.5; Estimated Glomerular Filt Rate > 60; Lipase 15 U/L (8-78); Magnesium 2.1 mg/dL (1.6-2.6); Potassium 3.9 mmol/L (3.3-5.1); Sodium 144 mmol/L (135-145); Total Protein 7.6 g/dL (6.5-8.0)
[2025-02-25 21:51] VITALS: BP 167/82; PULSE 84; RESP 18; TEMP 36.8; O2SAT 97
--- OUTSIDE RECORDS SUMMARY | 2025-02-25 22:21 | XMS_ITS | Clinical Summary ---
Author Organization [address] Address [address] [place] [address] Phone Care Team Providers Care Patient Ombudsperson Name Role Phone Kristy Schaffer MD Primary Care Provider Allergies No known active allergies Medications UNABLE TO FIND Med Name: CPAP machine Active metoprolol succinate (Toprol XL) 25 mg 24 hr tabletIndication s:Hypertension, unspecified type Take 1 tablet (25 mg total) by mouth 1 (one) time each day. Do not crush or chew. 90 each 5 Active hydrOXYzine HCL (ATARAX) 25 mg tablet Take 1 tablet (25 mg total) by mouth every 8 (eight) hours if needed for anxiety. 90 each 5 Active ramelteon (Rozerem) 8 mg tablet Take 1 tablet (8 mg total) by mouth at bedtime as needed for sleep. 90 each 5 03/17/20 25 Active levothyroxine (SYNTHROID, LEVOTHROID) 100 mcg tablet Take 1 tablet (100 mcg total) by mouth 1 (one) time each day. 90 tablet 1 5 Active eletriptan (RELPAX) 20 mg tablet Take 1 tablet (20 mg total) by mouth 1 (one) time if needed for migraine. May repeat once after 2 hours. 18 tablet 3 5 12/18/19 26 Active omeprazole (PriLOSEC) [address] capsule Take 1 capsule (40 mg total) by mouth 1 (one) time each day. 90 each 5 03/17/20 25 Active naproxen (NAPROSYN) 500 mg tablet Take 1 tablet (500 mg total) by mouth 2 (two) times a day if needed for mild pain, moderate pain or headaches. 60 tablet 2 5 Active losartan (Cozaar) 25 mg tablet Take 1 tablet (25 mg total) by mouth 1 (one) time each day. 90 each 5 03/17/20 25 Active meloxicam (MOBIC) 7.5 mg tablet Take 1 tablet (7.5 mg total) by mouth 1 (one) time each day. 30 tablet 2 5 Active Active Problems Problem Noted Date Diagnosed Date Anxiety 12/17/2024 Migraine without status migrainosus, not intract able 12/17/2024 Deep venous embolism and thr ombosis (CMS/HCC V24, CMS/HCC V28) 08/28/2024 HTN (hypertension) 08/28/2024 Gastroesophageal reflux disease 08/07/2024 Nonintractable episodic headache 05/10/2024 Cerebral ventriculomegaly 03/22/2024 Assessment & Plan (04/18/2024 5:33 PM EST): As per primary care physician. Orders: ECG 12 lead Dysphagia 03/22/2024 Empty sella (CMS/HCC V24) 03/22/2024 Epigastric pain 03/22/2024 Assessment & Plan (04/18/2024 5:33 PM EST): Patient honestly do not have significant symptom of epigastric pain but feels shortness of breath sometimes on exertion. This could be associated with obesity or deconditioning rather than any significant cardiac issue. We will get an echocardiogram anyway to assess the cardiac function. Orders: Transthoracic echocardiogram (TTE) complete with PRN contrast, bubble, strain, and 3D order panel; Future Heartburn 03/22/2024 Hiatal hernia 03/22/2024 Osteoarthritis of both knees 03/22/2024 Depression 03/21/2024 Hyperlipidemia 02/07/2023 Assessment & Plan (04/18/2024 5:33 PM EST): Will try to get medical records from primary care physician's office regarding the cholesterol level. Swelling of lower extremity 02/07/2023 Shortness of breath 02/07/2023 Assessment & Plan (04/18/2024 5:33 PM EST): Same as before, will get an echocardiogram to determine whether this is cardiac in nature or not. Diverticulosis 04/24/2019 Hepatic steatosis 04/24/2019 Pre-diabetes 04/22/2019 Obesity (BMI 30-39.9) 04/16/2019 Obstructive sleep apnea 05/19/2018 Overview (03/22/2024): [facility] Home Polysomnogram: Date 05/15/2018; AHI 30, Unclassified apneas 148; Obstructive apneas 33; Central apneas 3; Mixed apneas 0; hypopneas 70; average oxygen saturation 97% (lowest 91% without saturations <88% for 5% or more of study) - Obstructive Sleep Apnea - severe; mostly unclassified apneas; without sleep related hypoventilation by 2018 home polysomnogram. Subclinical hypothyroidism 04/11/2014 Encounters Date Type Department Care Team Description 02/25/2025 Telephone Adult Medicine [address] [phone] Kristy Schaffer MD 02/24/2025 11:00 AM EDT Treatment [address] [phone] Jamal Mendez, PT Primary osteoarthritis of both knees (Primary Dx); Difficulty in walking 02/20/2025 12:00 PM EDT Treatment [facility] [address] [phone] Jamal Mendez, PT Primary osteoarthritis of both knees (Primary Dx); Difficulty in walking 02/19/2025 11:45 AM EDT Office Visit Orthopedics [address] [phone] Jeb Ang PA Primary osteoarthritis of both knees (Primary Dx) 02/19/2025 Telephone Adult Medicine [address], [place] [phone] Kristy Schaffer MD 02/18/2025 10:00 AM EDT Treatment [facility] [address] [phone] Jamal Mendez, PT Primary osteoarthritis of both knees (Primary Dx); Difficulty in walking 02/12/2025 7:00 AM EDT Evaluation [facility] [address] [phone] Jamal Mendez, PT Primary osteoarthritis of both knees (Primary Dx); Difficulty in walking 02/12/2025 Plan of Care Documentation [address] [phone] 02/07/2025 9:15 AM EDT Ancillary Procedure [facility] - [facility] [address] [phone] Bilateral leg edema 12/19/2024 11:30 AM EDT Office Visit Orthopedics - [address] [phone] Jeb Ang PA Primary osteoarthritis of both knees (Primary Dx); Bilateral calf pain 12/19/2024 Telephone Adult Medicine [address] [phone] Kristy Schaffer MD 12/17/2024 3:30 PM EDT Office Visit Adult Medicine [address] [phone] Kristy Schaffer MD Primary hypertension (Primary Dx); Nonintractable episodic headache, unspecified headache type; Other migraine without status migrainosus, not intractable; Empty sella (CMS/[facility] V24); Anxiety; Insomnia, unspecified type; Subclinical hypothyroidism; Mixed hyperlipidemia; Pre-diabetes; Swelling of lower extremity; Bilateral leg edema; Dizziness 12/13/2024 Telephone Adult Medicine [address] [phone] Kristy Schaffer MD 12/05/2024 8:45 AM EDT Office Visit Pulmonology - [address] [place] [address] Samantha Bailey MD MEGA on CPAP (Primary Dx) from Last 3 Months Immunizations Name Administration Dates Next Due Tdap Tetanus diptheria acell ular pertussis (Boostrix; Adacel) 7yo and older 08/12/2014 Surgical History Surgery Date Site/Laterality Comments KNEE ARTHROSCOPY 2012 PROCEDURE: CA ARTHROSCOPY AID TX SPINE&/FX KNEE W/O FIXJ TUBAL LIGATION PROCEDURE: HISTORICAL TUBAL LIGATION; COMMENT: HAD REVERSAL UPPER GASTROINTESTINAL ENDOSCOPY 06/06/2019 PROCEDURE: CA UPPER GI ENDOSCOPY PERFORMED; COMMENT: 3 cm - 4cm HH, otherwise normal. Medical History Medical History Date Comments History of DVT (deep vein thrombosis) 04/13/2014 DX:History of DVT (deep vein thrombosis); COMMENT: 2012 Left leg after arthroscopic surgery Hypothyroidism 04/11/2014 DX:Hypothyroidis m Epigastric pain DX:Epigastric pa in Dysphagia DX:Dysphagia Heartburn DX:Heartburn Diverticulosis DX:Diverticulosi s Hiatal hernia DX:Hiatal hernia Depression DX:Depression Empty sella (CMS/HCC V24) DX:Emp ty sella ([facility]) Dizziness Memory loss Sleep apnea Family History Medical History Relation Name Comments Coronary artery disease Brother Heart attack Father Dementia Mother Breast cancer Neg Hx Diabetes Neg Hx Relation Name Status Comments Brother Alive Father (Age 60) Mother Alive Social History Tobacco Use Types Packs/Day Years Used Date Smoking Tobacco: Never Smokeless Tobacco: Never Tobacco Cessation:Counseling Given: Not Answered Alcohol Use Standard Drinks/Week Comments No 0 [...] Orientation Straight 08/28/2024 10 :08 AM EDT Obstetrics History Para Term AB IAB SAB Ectopic Multiple Livin g Live Births 4 4 4 4 Date Outcome GA Total Labor Labor/2nd/3rd Weight Sex Type Anes PTL Nataly A1 A5 Name Clin Term Term Term Term Last Filed Vital Signs Vital Sign Reading Time Taken Comments Blood Pressure 128/88 12/17/2024 3:30 PM EDT Pulse 68 12/17/2024 3:30 PM EDT Temperature 36.5 C (97.7 F) 12/17/2024 3:30 PM EDT Respiratory Rate 16 02/19/2025 11:27 AM EDT Oxygen Saturation 97% 12/05/2024 8:23 AM EDT Inhaled Oxygen Concentration - - Weight 93.9 kg (207 lb) 02/19/2025 11:27 AM EDT Height 160 cm (5' 3 ) 02/19/2025 11:27 AM EDT Body Mass Index 36.67 02/19/2025 11:27 AM EDT Plan of Treatment Upcoming Encounters Date Type Department Care Team (Late st Contact Info) Description 02/26/2025 9:10 AM EDT Office Visit [facility] [address] [place] [phone] Hayde Andrew NP [address] [place] [address] [address] [place] [address] 02/27/2025 11:00 AM EDT Treatment [facility] [address] [phone] Jamal Mendez, PT 03/03/2025 10:00 AM EDT Treatment [facility] [address] [phone] Kareem Mendoza, LOBSTER FISHERMAN 03/05/2025 10:00 AM EDT Treatment [facility] [address] [phone] Kareem Mendoza, LOBSTER FISHERMAN 03/10/2025 11:00 AM EDT Treatment [facility] [address] [phone] Jamal Mendez, PT 03/12/2025 10:00 AM EDT Treatment [facility] [address] [address] [place] [phone] Jamal Mendez, PT 03/13/2025 10:00 AM EDT Office Visit Pulmonology - [address] [phone] Samantha Bailey MD [address] [phone] 03/20/2025 10:45 AM EDT Office Visit Orthopedics [address] [phone] Jeb Ang PA [address] [place] [phone] 03/25/2025 3:30 PM EDT Office Visit Adult Medicine [address] [phone] Kristy Schaffer MD [address] [place] [phone] 05/13/2025 10:00 AM EST Consult Vascular Surgery - [place] [address] [phone] Adelia Cochran PA [address] [address] 06/06/2025 1:30 PM EST Office Visit Gastroenterology - [address] [phone] Hailey Davis MD [address] [phone] Health Maintenance Due Date Last Done Comments Hepatitis B Vaccines (1 of 3 - 19+ 3-dose series) 1984 Pneumococcal Vaccine: 50+ Years (1 of 2 - PCV) 1984 Cervical Cancer Screening: Pap Smear 1986 Zoster Vaccines (1 of 2) 2015 HIV Screening 05/14/2022 Hepatitis C Screening 05/14/2022 Social Influencers of Health Screening 05/14/2022 Depression Screening 06/05/2024 DTaP,Tdap,and Td Vaccines (2 - Td or Tdap) 08/12/2024 08/12/2014 COVID-19 Vaccine (2 - season) 2025 02/04/2021 Influenza Vaccine (#1) 2025 Hypertension/CHF/CAD Annual BMP Blood Test 11/04/2025 11/04/2024, 03/25/2024 Breast Cancer Screening 06/29/2026 06/29/19, 06/28/2023, 05/27/2023 Cholesterol Screening (Lipid Panel) 11/04/2029 11/04/2024, 06/21/2024, 03/25/2024, Additional history exists Colorectal Cancer Screening: Colonoscopy 08/28/2034 08/28/2024 RSV Immunization Adult Patients (1 - 1-dose 75+ series) 2040 HIB Vaccines Aged Out No longer eligi ble based on patient's age to complete this topic HPV Vaccines Aged Out No longer eligi ble based on patient's age to complete this topic Hepatitis A Vaccines Aged Out No long er eligible based on patient's age to complete this topic IPV Vaccines Aged Out No longer eligi ble based on patient's age to complete this topic MMR Vaccines Aged Out No longer eligi ble based on patient's age to complete this topic Meningococcal ACWY Vaccine Aged Out N o longer eligible based on patient's age to complete this topic Meningococcal B Vaccine Aged Out No l onger eligible based on patient's age to complete this topic RSV Immunization Patients Under 20 months Aged Out No longer eligible based on patient's age to complete this topic Varicella Vaccines Aged Out No longer eligible based on patient's age to complete this topic Procedures Procedure Name Priority Date/Time Associated Diagnosis Comments VAS US DUPLEX LOWER EXT VENOUS INSUFFICIENCY BILATERAL Routine 02/07/2025 9:54 AM EDT Bilateral leg edema BASIC METABOLIC PANEL Routine 11/04/2024 9:51 AM EDT Primary hypertension LIPID PANEL WITH REFLEX TO DIRECT LDL Routine 11/04/2024 9:51 AM EDT Hypercholesterolemia COLONOSCOPY Routine 08/28/2024 11:11 AM EDT Colon cancer screening MG MAMMO DIGITAL SCREENING W DU BILAT Routine 06/29/2024 12:50 PM EST Encounter for screening mammogram for breast cancer from Last 3 Months or Most Recently Relevant to Health Maintenance Results * Vascular US duplex lower extremity venous insufficiency bilateral (02/07/2025 9:54 AM EDT) Left GSK donny 0.26 cm CV VAS LAB Left GSDC donny 0.17 cm CV VAS LAB Left GSMT donny 0.28 cm CV VAS LAB Left GSPC donny 0.25 cm CV VAS LAB Left GSPT donny 0.28 cm CV VAS LAB Left pop reflux 567 ms CV VAS LAB Left SFJ Diameter 0.43 cm CV VAS LAB Left SSMC donny 0.16 cm CV VAS LAB Left SSPC donny 0.21 cm CV VAS LAB Right GSK donny 0.29 cm CV VAS LAB Right GSDC donny 0.26 cm CV VAS LAB Right GSMT donny 0.24 cm CV VAS LAB Right GSPC donny 0.24 cm CV VAS LAB Right GSPT donny 0.30 cm CV VAS LAB Right pop reflux 811 ms CV VAS LAB Right SFJ Diameter 0.40 cm CV VAS LAB Right SSMC donny 0.21 cm CV VAS LAB Right SSPC donny 0.41 cm CV VAS LAB Right GSDC reflux 1,244 ms CV VAS LAB Right SPJ Reflux Time 544 ms CV VAS LAB Right SPJ Diameter 0.30 cm CV VAS LAB Right SSMC reflux 517 ms CV VAS LAB Left GSPC reflux 1,178 ms CV VAS LAB Anatomical Region Laterality Modality Vascular, Abdomen Ultrasound Narrative 02/13/2025 3:36 PM EDT Right: 1. The right lower extremity veins are compressible and there is no evidence of DVT in the right lower extremity venous system. 2. The GSV has clinically significant reflux of 1.2 seconds in the right lower calf. 3. The SSV has significant reflux of 0.5 seconds at the saphenopopliteal junction and 0.5 seconds in the mid SSV. 4. The right popliteal vein has clinically significant reflux of 0.8 seconds. Left: 1. The left lower extremity veins are compressible and there is no evidence of DVT in the left lower extremity venous system. 2. The GSV has clinically significant reflux of 1.1 seconds at the left upper calf. 3. The SSV has no significant reflux. 4. The left popliteal vein has clinically significant reflux of 0.5 seconds. Right Lower Venous No evidence of deep vein thrombosis in the common femoral, deep femoral, proximal femoral, mid femoral, distal femoral, popliteal, greater saphenous, small saphenous, posterior tibial and peroneal veins of the right leg. The vessels showed compressibility. Interrogation showed phasic and spontaneous Doppler signals. Right Venous Insufficiency Duplex The exam was performed with the patient in reverse Trendelenburg. Left Lower Venous No evidence of deep vein thrombosis in the common femoral, deep femoral, proximal femoral, mid femoral, distal femoral, popliteal, greater saphenous, small saphenous, posterior tibial and peroneal veins of the left leg. The vessels showed compressibility. Interrogation showed phasic and spontaneous Doppler signals. Left Venous Insufficiency Duplex The exam was performed with the patient in reverse trendelenburg. Clothes Ironer Details A tobias scale, color and doppler analysis ultrasound was performed. During the study longitudinal and transverse views were obtained. Pulsed wave doppler was performed. us Kristy Schaffer MD CV VASCULAR PROCEDURES Yolanda l Result * (ABNORMAL) Lipid panel with reflex to direct LDL (11/04/2024 9:51 AM EDT) [facility] Cholesterol 211(H) 0 - 200 mg/dL LAB CHEMISTRY METHOD 11/04/2024 2:43 PM EDT [facility] Triglycerides 176(H) 0 - 150 mg/dL LAB CHEMISTRY METHOD 11/04/2024 2:43 PM EDT [facility] HDL 39(L) >=40 mg/dL LAB CHEMISTRY METHOD 11/04/2024 2:43 PM T [facility] LDL Calculated 137(H) 0 - 100 mg/dL LAB CHEMISTRY METHOD 11/04/2024 2:43 PM EDT [facility] VLDL Cholesterol Tae 35.2 mg/dL LAB CHEMISTRY METHOD 11/04/2024 2:43 PM T [facility] Non HDL Chol. (LDL+VLDL) 172(H) <145 mg/dL LAB CHEMISTRY METHOD 11/04/2024 2:43 PM T [facility] Chol/HDL Ratio 5.4(H) 0.0 - 4.4 LAB CHEMISTRY METHOD 11/04/2024 2:43 PM T [facility] Blood Venous blood specimen / Unknown Venipuncture / Unknown 11/04/2024 9:51 AM EDT 11/04/2024 9:51 AM EDT us Kristy Schaffer MD LAB BLOOD ORDERABLES Final Result [facility] [address] [place] [address], * (ABNORMAL) Basic metabolic panel (11/04/2024 9:51 AM EDT) Sodium 142 133 - 145 mmol/L LAB CHEMISTRY METHOD 11/04/2024 2:43 PM [facility] Potassium 4.5 3.5 - 5.5 mmol/L LAB CHEMISTRY METHOD 11/04/2024 2:43 PM [facility] Chloride 107 96 - 110 mmol/L LAB CHEMISTRY METHOD 11/04/2024 2:43 PM [facility] CO2 28 21 - 32 mmol/L LAB CHEMISTRY METHOD 11/04/2024 2:43 PM [facility] Anion Gap 7 3 - 11 LAB CHEMISTRY METHOD 11/04/2024 2:43 PM [facility] Glucose 122(H) 70 - 100 mg/dL LAB CHEMISTRY METHOD 11/04/2024 2:43 PM [facility] BUN 14 5 - 25 mg/dL LAB CHEMISTRY METHOD 11/04/2024 2:43 PM EDT [facility] Creatinine 0.89 0.50 - 1.10 mg/dL LAB CHEMISTRY METHOD 11/04/2024 2:43 PM EDT [facility] eGFR 75 >=60 mL/min/1. 73m2 LAB CHEMISTRY METHOD 11/04/2024 2:43 PM EDT [facility] Comment:Calculation based on the Chronic Kidney Disease Epidemiology Collaboration (CKD-EPI) equation refit without adjustment for race. BUN/Creatinine Ratio 15.7 LAB CHEMISTRY METHOD 11/04/2024 2:43 PM EDT [facility] Calcium 9.3 8.5 - 10.5 mg/dL LAB CHEMISTRY METHOD 11/04/2024 2:43 PM EDT [facility] Blood Venous blood specimen / Unknown Venipuncture / Unknown 11/04/2024 9:51 AM EDT 11/04/2024 9:51 AM EDT Kristy Schaffer MD LAB BLOOD ORDERABLES Final Result Performing Organization Address City/State/[facility] Co de Phone Number [facility] [address] [place] [address], * COLONOSCOPY Anesthesia - MAC; [facility] ENDOSCOPY (08/28/2024 11:11 AM EDT) Anatomical Region Laterality Modality Endoscopy 08/28/2024 10:5 3 AM EDT Impressions 08/28/2024 11:13 AM EDT - Diverticulosis in the sigmoid colon and in the descending colon. - Internal hemorrhoids. - The examination was otherwise normal. - No specimens collected. Recommendation: - Discharge patient to home. - Repeat colonoscopy in 10 years for screening purposes. Narrative 08/28/2024 11:13 AM EDT [facility] GI Patient Name: Iker Sheppard Procedure Date: 08/28/2024 10:53 AM Date of : 1965 Age: 59 Gender: Female Note Status: Finalized Attending MD: Hailey Davis MD, Procedure Date No Time: 08/28/2024 Procedure: Colonoscopy Indications: Screening for colorectal malignant neoplasm Providers: Hailey Davis MD Referring MD: Hailey Davis MD Medicines: Monitored Anesthesia Care Complications: No immediate complications. Estimated Blood Loss: Estimated blood loss: none. Procedure: Pre-Anesthesia Assessment: - Prior to the procedure, a History and Physical was performed, and patient medications and allergies were reviewed. The patient is competent. The risks and benefits of the procedure and the sedation options and risks were discussed with the patient. All questions were answered and informed consent was obtained. Patient identification and proposed procedure were verified by the physician, the nurse, the dye and chemical coordinator and the electrical instrument technician in the pre-procedure area in the endoscopy suite. Mental Status Examination: alert and oriented. Airway Examination: normal oropharyngeal airway and neck mobility. Respiratory Examination: clear to auscultation. CV Examination: normal. Prophylactic Antibiotics: The patient does not require prophylactic antibiotics. Prior Anticoagulants: The patient has taken no anticoagulant or antiplatelet agents. ASA Grade Assessment: II - A patient with mild systemic disease. After reviewing the risks and benefits, the patient was deemed in satisfactory condition to undergo the procedure. The anesthesia plan was to use monitored anesthesia care (MAC). Immediately prior to administration of medications, the patient was re-assessed for adequacy to receive sedatives. The heart rate, respiratory rate, oxygen saturations, blood pressure, adequacy of pulmonary ventilation, and response to care were monitored throughout the procedure. The physical status of the patient was re-assessed after the procedure. After I obtained informed consent, the scope was passed under direct vision. Throughout the procedure, the patient's blood pressure, pulse, and oxygen saturations were monitored continuously. The Colonoscope was introduced through the anus and advanced to the cecum, identified by appendiceal orifice and ileocecal valve. The colonoscopy was performed without difficulty. The patient tolerated the procedure well. The quality of the bowel preparation was good. Findings: The perianal and digital rectal examinations were normal. Many small-mouthed diverticula were found in the sigmoid colon and descending colon. Internal hemorrhoids were found during retroflexion. The hemorrhoids were Grade I (internal hemorrhoids that do not prolapse). The exam was otherwise without abnormality. Procedure Code(s): --- Professional --- G0121, Colorectal cancer screening; colonoscopy on individual not meeting criteria for high risk Diagnosis Code(s): --- Professional --- Z12.11, Encounter for screening for malignant neoplasm of colon CPT copyright 2020 [employer]. All rights reserved. The codes documented in this report are preliminary and upon pattern lease inspector review may be revised to meet current compliance requirements. Hailey Davis MD 08/28/2024 11:13:25 AM This report has been signed electronically.Hailey Davis MD Number of Addenda: 0 Note Initiated On: 08/28/2024 10:53 AM Scope Withdrawal Time: 0 hours 6 minutes 13 seconds Scope In: Scope Out: 11:10:08 AM Endoscopy Department at [facility] - [address] [place] [phone] Procedure Note Hailey Davis MD - 08/28/2024 [facility] Patient Name: Iker Sheppard Procedure Date: 08/28/2024 10:53 AM Date of : 1965 Age: 59 Gender: Female Note Status: Finalized Attending MD: Hailey Davis MD, Procedure Date No Time: 08/28/2024 Procedure: Colonoscopy Indications: Screening for colorectal malignant neoplasm Providers: Hailey Davis MD Referring MD: Hailey Davis MD Medicines: Monitored Anesthesia Care Complications: No immediate complications. Estimated Blood Loss: Estimated blood loss: none. Procedure: Pre-Anesthesia Assessment: - Prior to the procedure, a History and Physicalwas performed, and patient medications and allergieswere reviewed. The patient is competent. The risks and benefits of the procedure and the sedation optionsand risks were discussed with the patient. Allquestions were answered and informed consent was obtained. Patient identification and proposed procedure were verified by the physician, the nurse, theanesthetist and the electrical instrument technician in the pre-procedure area in the endoscopy suite. Mental Status Examination: alertand oriented. Airway Examination: normal oropharyngeal airway and neck mobility. Respiratory Examination: clear to auscultation. CV Examination: normal. Prophylactic Antibiotics: The patient does notrequire prophylactic antibiotics. Prior Anticoagulants: The patient has taken no anticoagulant or antiplatelet agents. ASA Grade Assessment: II - A patient withmild systemic disease. After reviewing the risks and benefits, the patient was deemed in satisfactory condition to undergo the procedure. The anesthesia plan was to use monitored anesthesia care (MAC). Immediately prior to administration of medications, the patient was re-assessed for adequacy to receive sedatives. The heart rate, respiratory rate, oxygen saturations, blood pressure, adequacy of pulmonary ventilation, and response to care were monitored throughout the procedure. The physical status ofthe patient was re-assessed after the procedure. After I obtained informed consent, the scope was passed under direct vision. Throughout theprocedure, the patient's blood pressure, pulse, and oxygen saturations were monitored continuously. The Colonoscope was introduced through the anus and advanced to the cecum, identified by appendiceal orifice and ileocecal valve. The colonoscopy was performed without difficulty. The patient tolerated the procedure well. The quality of the bowel preparation was good. Findings: The perianal and digital rectal examinations were normal. Many small-mouthed diverticula were found in the sigmoid colon and descending colon. Internal hemorrhoids were found duringretroflexion. The hemorrhoids were Grade I (internal hemorrhoids that do not prolapse). The exam was otherwise without abnormality. Procedure Code(s): --- Professional --- G0121, Colorectal cancer screening; colonoscopy on individual not meeting criteria for high risk Diagnosis Code(s): --- Professional --- Z12.11, Encounter for screening for malignantneoplasm of colon CPT copyright 2020 [employer]. All rights reserved. The codes documented in this report are preliminary and upon pattern lease inspector reviewmay be revised to meet current compliance requirements. Hailey Davis MD 08/28/2024 11:13:25 AM This report has been signed electronically.Hailey Davis MD Number of Addenda: 0 Note Initiated On: 08/28/2024 10:53 AM Scope Withdrawal Time: 0 hours 6 minutes 13 seconds Scope In: Scope Out: 11:10:08 AM Endoscopy Department at [facility] - [address] [place] [phone] IMPRESSION: - Diverticulosis in the sigmoid colon and in the descending colon. - Internal hemorrhoids. - The examination was otherwise normal. - No specimens collected. Recommendation: - Discharge patient to home. - Repeat colonoscopy in 10 years for screening purposes. us Hailey Davis MD GI~PROCEDURE ORDERABLES Fin al Result * MG Mammo Digital Screening w Du bilat (06/29/2024 12:50 PM EST) Anatomical Region Laterality Modality Breast Bilateral Mammography 07/01/2024 6:07 PM EST Impressions 07/01/2024 6:12 PM EST 1. No mammographic evidence of malignancy 2. Scattered fibroglandular tissue BI-RADS CATEGORY: 2 - BENIGN RECOMMENDATION: Screening bilateral mammogram is recommended in 1 year. Mammo Location: [facility], [address] [place] [address], [id number], . -------- FINAL REPORT -------- Dictated By: Reina Erwin Dictated Date: 07/01/2024 18:07 ET Assigned Physician: Reina Erwin Reviewed and Electronically Signed By: Reina Erwin Signed Date: 07/01/2024 18:12 ET Workstation ID: [id number] Transcribed By: Self Edit Transcribed Date: 07/01/2024 18:07 ET Narrative 07/01/2024 6:12 PM EST A BILATERAL DIGITAL 3D SCREENING MAMMOGRAPHY HISTORY: Routine screening. No family history of breast cancer. COMPARISON: Mammogram from 05/27/2023 Technique: Bilateral full field digital mammography (3D) was performed using standard CC and MLO projections , right breast exaggerated CC CAD was used to evaluate this mammogram. FINDINGS: Right: No suspicious masses, groups of microcalcification or areas of architectural distortion identified. Stable typically benign parenchymal asymmetries. Left: No suspicious masses, groups of microcalcification or areas of architectural distortion identified. Stable typically benign parenchymal asymmetries. BREAST DENSITY: B - There are scattered areas of fibroglandular density. Procedure Note Reina Erwin MD - 07/01/2024 A BILATERAL DIGITAL 3D SCREENING MAMMOGRAPHY HISTORY: Routine screening. No family history of breast cancer. COMPARISON: Mammogram from 05/27/2023 Technique: Bilateral full field digital mammography (3D) was performedusing standard CC and MLO projections , right breast exaggerated CC CAD was used to evaluate this mammogram. FINDINGS: Right: No suspicious masses, groups of microcalcification or areas ofarchitectural distortion identified. Stable typically benign parenchymalasymmetries. Left: No suspicious masses, groups of microcalcification or areas ofarchitectural distortion identified. Stable typically benign parenchymalasymmetries. BREAST DENSITY: B - There are scattered areas of fibroglandular density. IMPRESSION: 1. No mammographic evidence of malignancy 2. Scattered fibroglandular tissue BI-RADS CATEGORY: 2 - BENIGN RECOMMENDATION: Screening bilateral mammogram is recommended in 1 year. Mammo Location: [facility], [address] [place] [address], [id number], . -------- FINAL REPORT -------- Dictated By: Reina Erwin Dictated Date: 07/01/2024 18:07 ET Assigned Physician: Reina Erwin Reviewed and Electronically Signed By: Reina Erwin Signed Date: 07/01/2024 18:12 ET Workstation ID: [id number] Transcribed By: Self Edit Transcribed Date: 07/01/2024 18:07 ET Kristy Schaffer MD IMG BI PROCEDURES Final Res ult from Last 3 Months or Most Recently Relevant to Health Maintenance Insurance [facility] PLAN Care Teams Patient Ombudsperson Relationship Specialty Start Date End Date Kristy Schaffer MD [address] [place] [address] [facility] - General 08/04/22
--- OUTSIDE RECORDS SUMMARY | 2025-02-25 22:21 | XMS_ITS | Encounter Summary ---
Author Organization [facility] Address [address] [place] [address] Care Team Providers Care Financial Secretary Name Role Phone Kristy Schaffer MD Primary Care Provider [phone] Reason for Visit * Reason Onset Date Comments Abdominal Pain 02/25/2025 Encounter Details Date Type Department Care Team ([facility] st Contact Info) Description 02/25/2025 Telephone Adult Medicine [facility] [address] [place] [address] Kristy Schaffer MD [address] [place] [address] Social History Tobacco Use Types Packs/Day Years [...] as of this encounter Progress Notes * Madelin Hills RN - 02/25/2025 2:24 PM EDT Spoke with pt's daughter pt was here 02/19 with severe abd pain, taking om,prazole but nothing was helping, gi visit was cancelled and pt stated pain was increasing pt was advised to go to the ed , she did not go Now pt has had this pain for 2 week, told daughter pain was severe, she has no chest pain or SOB, she is C/O feeling weak, has been eating, no fever, pain has not changed but is now constant and pt refuses to go to the ed Daughter is going to see her now and tell her she is taking her to the d . Daughter to call if pt refuses again * Deedee Cazares - 02/25/2025 1:44 PM EDT Patient call requires triage: Symptoms patient is presenting: c/o abdominal pain, patient doesn't want to go to ER How long has patient had these symptoms?: 2 weeks For ALL patients calling to schedule any appointment (routine, sick visit, follow up, consult, etc.) in the outpatient setting please ask the following questions: Do you have fever of higher than 101, sore throat with difficulty swallowing or severe shortness ofbreath? no If YES to any of these above symptoms, send a message to triage and do not book. Red dot. If no, an audio or video visit should be booked. Have you had close contact with someone with Coronavirus in the last 14 days? no Have you traveled abroad? no Have you traveled recently to another state outside of [place], [place], [place], [place], [place], [place], [place]? no o If yes, did you quarantine for 14 days or have a negative covid test? no If yes to any of the above, patient is not to be scheduled in office until after 14 day quarantine or negative covid test. If pain or injury related was it due to an accident at work or from a motor vehicle accident? If yes, date of accident/Injury: No If yes, gather 3rd republican insurance information Third Constitution Party Information: not applicable PCP: Kristy Schaffer MD Payor: [employer] PLAN / Plan: [employer] MEDICAID / Product Type: *No Product type* / documented in this encounter Plan of Treatment Upcoming Encounters Date Type Department Care Team (Late st Contact Info) Description 02/26/2025 9:10 AM EDT Office Visit [facility] [address] [place] [phone] Hayde Andrew, JEROMY 2 [facility] [address] [place] [phone] 02/27/2025 11:00 AM EDT Treatment [facility] [address] [phone] Jamal Mendez, PT 03/03/2025 10:00 AM EDT Treatment [address] [phone] Kareem Mendoza, CARBONATOR 03/05/2025 10:00 AM EDT Treatment [address] [phone] Kareem Mendoza, CARBONATOR 03/10/2025 11:00 AM EDT Treatment [address] [phone] Jamal Mendez, PT 03/12/2025 10:00 AM EDT Treatment [address] [phone] Jamal Mendez, PT 03/13/2025 10:00 AM EDT Office Visit Pulmonology [facility] [address] [phone] Samantha Bailey MD [address] [address] 03/20/2025 10:45 AM EDT Office Visit Orthopedics [facility] [address] [place] [phone] Jeb Ang PA [address] [place] [phone] 03/25/2025 3:30 PM EDT Office Visit Adult Medicine [facility] 444 [place] [address] Kristy Schaffer MD 444 [facility] [place] [address] 05/13/2025 10:00 AM EST Consult [facility] [place] [address] [place] [address] Adelia Cochran PA [address] [place] [address] 06/06/2025 1:30 PM EST Office Visit Gastroenterology - [place] [address] [facility] [address] [place] [address] Hailey Davis MD 175 [facility] [address] [place] [address] documented as of this encounter Visit Diagnoses Not on filedocumented in this encounter Care Teams Financial Secretary Relationship Specialty Start Date End Date Kristy Schaffer MD 444 [facility] [place] [address] PCP - General 08/04/22 documented as of this encounter
--- OUTSIDE RECORDS SUMMARY | 2025-02-25 22:21 | XMS_ITS | Encounter Summary ---
Author Organization [facility] Address [address] [place] [address] Care Team Providers Care Nurse Research Name Role Phone Kristy Schaffer MD Primary Care Provider [phone]- [phone] Reason for Visit * Reason Onset Date Comments triage 02/19/2025 west walkin 02/19/2025 Encounter Details Date Type Department Care Team ([facility] st Contact Info) Description 02/19/2025 Telephone Adult Medicine [facility] [address] [place] [address] Kristy Schaffer MD [address] [place] [address] Social History Tobacco Use Types Packs/Day Years [...] as of this encounter Progress Notes * Natali Kirkpatrick RN - 02/19/2025 12:14 PM EDT Called ans spoke to pt. . She states she was suppose to see GI and her apt. Was canceled and changed to June . She has been having sever abd. Pain every day on and off times 3 weeks . She states at present she is not having it but had it this a.m. and the night before each day having an episode . Ya it's really bad she has nausea intermittently and feels as though she will vomit but doesn't. The pain is located above the naval and pain is across upper abd. More intense pain just above naval. The abd. Is soft , no tarry stools , no weakness or dizziness , she is eating and drinking , nofever or chills, no diarrhea or black stool, no cp or sob . She has been taking omeprazole but it is not helping . I even took 2 and it did not help . I advised pt. With the severity of pain to be evaluated in the ER. Pt. Reluctantly agrees * Edilberto Chua - 02/19/2025 12:01 PM EDT Patient call requires triage: Symptoms patient is presenting: walk in patient states that she has gastrointeritis and she has a stomach ache for almost a month now she says the medication she is on is no longer helping How long has patient had these symptoms?: 1 mo For ALL patients calling to schedule any [...] traveled recently to another state outside of [place], [place], [place], [place], [place], [place], [place]? no o If yes, did you quarantine [...] of accident/Injury: No If yes, gather 3rd alliance party insurance information Third Libertarian Information: PCP: Kristy Schaffer MD [facility] [employer] [facility] / Plan: [employer] MEDICAID / Product Type: *No Product type* / documented in this encounter Plan of Treatment Upcoming Encounters Date Type Department Care Team (Late st Contact Info) Description 02/26/2025 9:10 AM EDT Office Visit [facility] [address] [place] [phone] Hayde Andrew NP [address] [place] [address] [phone] 02/27/2025 11:[address] [facility] [address] [phone] Jamal Mendez, PT 03/03/2025 10:[address] [facility] [address] [phone] Kareem Mendoza, CHAIR SPRING ASSEMBLER 03/05/2025 10:[address] [facility] [address] [phone] Kareem Mendoza, CHAIR SPRING ASSEMBLER 03/10/2025 11:[address] [facility] [address] [phone] Jamal Mendez, PT 03/12/2025 10:[address] [facility] [address] [phone] Jamal Mendez, PT 03/13/2025 10:00 AM EDT Office Visit Pulmonology [facility] [address] [phone] Samantha Bailey MD [address] [address] 03/20/2025 10:45 AM EDT Office Visit Orthopedics [facility] [address] [place] [address] Jeb Ang PA [address] [place] [phone] 03/25/2025 3:30 PM EDT Office Visit [facility] [place] [address] [place] [address] Kristy Schaffer MD [address] [place], [place] 05/13/2025 10:00 AM EST Consult Vascular Surgery - [place] 300 [facility] [address] [place] [address] Adelia Cochran PA 300 [facility] [address] [place] [address] 06/06/2025 1:30 PM EST Office Visit Gastroenterology - [place] 175 [facility] 175 [facility] [address] [place] [phone] Hailey Davis MD 175 [facility] [address] [place] [address] documented as of this encounter Visit Diagnoses Not on filedocumented in this encounter Care Teams Nurse Research Relationship Specialty Start Date End Date Kristy Schaffer MD [address] [place], [place] PCP - General 08/04/22 documented as of this encounter
--- NOTE | 2025-02-26 01:03 | PC.NURSE ---
Delay in med administration. Pt was a hard stick. This RN and another tried to obtain IV access with no success. Provider Reina was able to place an US guided #20 in the LAC. Pt tolerated well. Meds given per aug. Pt waiting for CT.
[2025-02-26 01:06] VITALS: BP 148/84; PULSE 70; RESP 20; TEMP 37; O2SAT 99
[2025-02-26] MEDS: iohexoL 350 MG/ML 100 ML INFUS..BTL 85 ML IV (01:47)
[2025-02-26] MEDS: Lidocaine HCl Viscous 2 % 15 ML SOLUTION PO (03:25)
[2025-02-26] MEDS: Magnesium Hydrox/Alum Hydrox 30 ML ORAL.SUSP PO (03:25)
[2025-02-26 03:46] VITALS: BP 172/80; PULSE 65; RESP 16; TEMP 36.7; O2SAT 98
[2025-02-26 05:13] VITALS: BP 140/86; PULSE 65; RESP 16; TEMP 36.7; O2SAT 98
== END 2025-02-26 05:15 | disposition home or self-care (01) ==
PROVIDERS: Physician Assistant Medical; Emergency Provider Emergency Medicine Emergency Medical Services
DX: K29.70 Gastritis, unspecified, without bleeding (principal); K29.80 Duodenitis without bleeding; R11.0 Nausea; Z79.899 Other long term (current) drug therapy
CPT/HCPCS: 36415; 74177; 80053; 81001; 83690; 83735; 85025; 96361; 96374; 96375; 99284; 99285; J2270; J2405; Q9967

== ENCOUNTER → 2025-02-26 | Outpatient (BNV) | payer OTHER, SELFPAY | PROVIDERS: Emergency Provider Emergency Medicine Emergency Medical Services; Visit Provider Radiology Diagnostic Radiology | DX: K44.9 Diaphragmatic hernia without obstruction or gangrene (principal); K57.30 Diverticulosis of large intestine without perforation or abscess without bleeding | CPT/HCPCS: 74177 ==